=== PATIENT | female | born 1980 | race African-American/Black ===

== ENCOUNTER 2019-02-26 15:09 | Emergency (ER) | payer MEDICAID ==
[~2019-02-26] VITALS: Ht 170.2 cm; Wt 102.0 kg
[2019-02-26 17:20] VITALS: BP 126/82
== END 2019-02-26 19:23 | disposition home or self-care (01) ==
LOC: ER 15:09
DX: M79.662 Pain in left lower leg (principal); J45.909 Unspecified asthma, uncomplicated
CPT/HCPCS: 73562; 73590; 81025; 99283; L1830

== ENCOUNTER 2020-06-28 11:51 | Emergency (ER) | payer MEDICAID ==
[~2020-06-28] VITALS: Ht 170.2 cm; Wt 105.0 kg
[2020-06-28] MEDS ORDERED: IBUP-2029 MT (13:51)
[2020-06-28 14:07] VITALS: BP 122/85
== END 2020-06-28 14:08 | disposition home or self-care (01) ==
LOC: ER 12:01
DX: S80.01XA Contusion of right knee, initial encounter (principal); W18.39XA Other fall on same level, initial encounter; Y93.89 Activity, other specified; Y92.89 Other specified places as the place of occurrence of the external cause; Y99.8 Other external cause status; J45.909 Unspecified asthma, uncomplicated; Z98.890 Other specified postprocedural states
CPT/HCPCS: 73562; 73590; 81025; 99284